=== PATIENT | male | born 1935 | race Caucasian/White ===

== ENCOUNTER 2016-12-03 03:45 | Emergency (ER) | payer MEDICARE, OTHER ==
--- NOTE | 2016-12-03 19:08 | ER ---
ADMIT: 12/03/2016 RM/LOC: ER [facility] MR#: [id number] [id number] [id number] YUE SEAMUS Belle [address] [place] [address] Emergency Room Report SEX: M AGE: 81 : 1935 DATE: 12/03/2016 The patient is an 81-year-old male with past medical history of hypertension, kidney stone, ureteral stent, who came to the ER with chief complaint of left anterior chest pain which started suddenly and increased in severity and became it moderate and lasted about 2 hours and resolved by itself. The patient states he has similar pain in the past and he had been followed up. The last stress test was a year ago and it was negative. The patient also complains of headache, which is similar to previous headaches he has had on the posterior occipital area, is bilateral and is moderate in severity too. In the ER, the patient has residual pain. He states that the pain came from the 7 right now to 2, and it is more like a dull pain and there is no radiation, but at the beginning of the pain, he had some diaphoresis. EKG did not show any ST or T changes or arrhythmias. Cardiac enzymes, troponin is negative. The patient received aspirin in the ER. D-dimer was also negative. Chest x-ray did not show any pathologies or abnormalities. The patient received Toradol IM, for headaches. At the moment, the patient is stable and the pain was controlled. The patient has close followup with Dr. Galaviz this week and also with Dr. Swan in 2 weeks. The patient was stable to be discharged to home to be followed up by the primary care doctor. The patient was given return precautions and he acknowledged he understood them and agreed with the plan. Ilia Quiñones MD/ sandy JOB #: [id number] CC: Ilia Quiñones MD, Attending Physician Tomas Galaviz MD, Family Physician
== END 2016-12-03 05:49 | disposition home or self-care (01) ==
LOC: ER 03:45
DX: R07.9 Chest pain, unspecified (principal); R51 Headache; G89.29 Other chronic pain; I10 Essential (primary) hypertension; Z87.442 Personal history of urinary calculi

== ENCOUNTER → 2016-12-23 | Outpatient (CLI) | payer MEDICARE, OTHER | END | disposition home or self-care (01) | LOC: RAD.S 10:30 | DX: N13.30 Unspecified hydronephrosis (principal); Q61.02 Congenital multiple renal cysts; R10.11 Right upper quadrant pain ==

== ENCOUNTER → 2016-12-28 | Outpatient (CLI) | payer MEDICARE, OTHER | END | disposition home or self-care (01) | LOC: RAD.S 12-24 10:40 | DX: M79.605 Pain in left leg (principal); I82.812 Embolism and thrombosis of superficial veins of left lower extremity; I70.202 Unspecified atherosclerosis of native arteries of extremities, left leg ==

== ENCOUNTER → 2017-01-27 | Outpatient (CLI) | payer MEDICARE, OTHER | END | disposition home or self-care (01) | DX: M79.605 Pain in left leg (principal); M79.604 Pain in right leg; I73.9 Peripheral vascular disease, unspecified; I77.9 Disorder of arteries and arterioles, unspecified ==

== ENCOUNTER → 2017-02-23 | Outpatient (CLI) | payer MEDICARE, OTHER | END | disposition home or self-care (01) | LOC: RAD.S 09:40 | DX: N13.30 Unspecified hydronephrosis (principal) ==